=== PATIENT | male | born 1965 | race African-American/Black ===

== ENCOUNTER 2016-08-29 12:44 | Emergency (ER) | payer MEDICARE | END 2016-08-29 14:43 | disposition home or self-care (01) | LOC: BURERS 12:44 | DX: M54.32 Sciatica, left side (principal); I83.93 Asymptomatic varicose veins of bilateral lower extremities; Z79.82 Long term (current) use of aspirin; Z79.899 Other long term (current) drug therapy; Z79.891 Long term (current) use of opiate analgesic | CPT/HCPCS: 36415; 85379; 99283 ==

== ENCOUNTER 2019-01-31 13:01 | Emergency (ER) | payer MEDICARE ==
[2019-01-31 14:05] LABS: ALT (SGPT) 29 U/L (8-55); AST (SGOT) 22 U/L (5-34); Albumin 4.3 g/dL (3.5-5.0); Alkaline Phosphatase 39 U/L (40-110); Anion Gap 15 mmol/L (10-20); BUN (Urea Nitrogen) 13 mg/dL (8.4-25.7); Bilirubin, Total 0.3 mg/dL (0.2-1.2); Calc. Creatinine Clearance 0 mL/min (70-130); Calcium 9.3 mg/dL (7.8-10.44); Carbon Dioxide 27 mmol/L (22-29); Chloride 101 mmol/L (98-107); Estimated GFR-MDRD Greater than 90; Globulin 3.5 g/dL (2.4-3.5); Glucose 141 mg/dL (70-105); Potassium 3.6 mmol/L (3.5-5.1); Protein, Total 7.8 g/dL (6.0-8.3)
[2019-01-31 14:07] LABS: #Basophils 0.1 thou/uL (0.0-0.2); #Eosinphils 0.1 thou/uL (0.0-0.7); #Lymphocytes 2.3 thou/uL (1.20-3.40); #Monocytes 0.5 thou/uL (0.11-0.59); #Neutrophils 5.9 thou/uL (1.40-6.50); %Basophils 0.8 % (0.0-1.0); %Eosinophils 1.5 % (0.0-10.0); %Lymphocytes 26.1 % (21.0-51.0); %Monocytes 5.6 % (0.0-10.0); Hemoglobin 15.8 g/dL (14.0-18.0); Mean Corpuscular Hemoglobin 27.8 pg (27.0-31.0); Mean Corpuscular Volume 86.9 fL (78.0-98.0); Mean Platelet Volume 8.4 fL (7.4-10.4); Platelet Count 200 thou/uL (130-400); RBC Distribution Width 12.7 % (11.5-14.5); White Blood Cell (WBC) Count 8.9 thou/uL (4.8-10.8)
[2019-01-31 14:08] LABS: Band 1 % (5-11); Lymphocytes 27 % (21-51); MDiff Complete? YES; Monocytes 4 % (0-10); Neutrophil 68 % (42-75); Sodium 139 mmol/L (136-145)
--- NOTE | 2019-01-31 16:10 | RAD ---
RADIOGRAPH CHEST 1 VIEW: DATE: 01/31/2019 HISTORY: 54-year-old male with dyspnea FINDINGS: There are no airspace densities, pulmonary edema, pneumothorax, or cardiomegaly. The lateral costophr enic angles are sharp. IMPRESSION: No acute cardiopulmonary findings.
== END 2019-01-31 14:29 | disposition home or self-care (01) ==
LOC: BURERS 13:01
DX: I10 Essential (primary) hypertension (principal); Z79.891 Long term (current) use of opiate analgesic; Z79.899 Other long term (current) drug therapy
CPT/HCPCS: 71045; 80053; 83880; 84484; 85025; 93005; 94760

== ENCOUNTER 2019-08-31 07:45 | Emergency (ER) | payer MEDICARE ==
[2019-08-31] MEDS ORDERED: Morphine 4 MG/ML VIAL ONE (07:53)
[2019-08-31] MEDS ORDERED: Nitroglycerin 50 MG/250 ML BOT 250 ML ONE (08:05)
[2019-08-31] MEDS ORDERED: Heparin 5,000 UNITS/ML VIAL ONE (08:10)
[2019-08-31] MEDS ORDERED: Heparin 25,000 units/D5W 500 ML ONE (08:10)
[2019-08-31 08:15] LABS: INR-International Normal Ratio 1.1; PTT 26.6 sec (22.9-36.1); Prothrombin Time 13.7 sec (12.0-14.7)
[2019-08-31] MEDS ORDERED: Metoprolol Tartrate 5 MG/5 ML VIAL ONE (08:16)
[2019-08-31 08:20] LABS: Mean Corpuscular HGB CONC 30.6 g/dL (32.0-36.0); Mean Corpuscular Hemoglobin 26.8 pg (27.0-31.0); Mean Corpuscular Volume 87.8 fL (78.0-98.0); Mean Platelet Volume 7.8 fL (7.4-10.4); Platelet Count 223 thou/uL (130-400); RBC Distribution Width 12.7 % (11.5-14.5); White Blood Cell (WBC) Count 13.9 thou/uL (4.8-10.8)
[2019-08-31 08:25] LABS: ALT (SGPT) 25 U/L (8-55); AST (SGOT) 20 U/L (5-34); Albumin 4.1 g/dL (3.5-5.0); Alkaline Phosphatase 49 U/L (40-110); Anion Gap 16 mmol/L (10-20); BUN (Urea Nitrogen) 10 mg/dL (8.4-25.7); Bilirubin, Total 0.7 mg/dL (0.2-1.2); Calc. Creatinine Clearance 0 mL/min (70-130); Calcium 8.8 mg/dL (7.8-10.44); Carbon Dioxide 25 mmol/L (22-29); Chloride 99 mmol/L (98-107); Estimated GFR-MDRD Greater than 90; Globulin 3.5 g/dL (2.4-3.5); Glucose 191 mg/dL (70-105); Potassium 3.8 mmol/L (3.5-5.1); Protein, Total 7.6 g/dL (6.0-8.3); Sodium 136 mmol/L (136-145)
[2019-08-31 08:31] LABS: Band 1 % (5-11); Lymphocytes 7 % (21-51); MDiff Complete? YES; Monocytes 2 % (0-10); Neutrophil 90 % (42-75); Platelet Morphology Comment Appears Adequate; RBC Morphology Normal
[2019-08-31] MEDS ORDERED: Ketorolac Tromethamine 30 MG/ML VIAL ONE (09:37)
--- NOTE | 2019-08-31 14:21 | RAD ---
PORTABLE CHEST: Date: 08/31/2019 An AP portable film at 0814 hours is compared with the 01/31/2019 study. FINDINGS: The heart is normal in size and the lungs are clear. No lobar infiltrate or effusion evident. No vasc ular congestion or edema. IMPRESSION: No adverse change since the prior study. POS: HOME
== END 2019-08-31 08:23 | disposition short-term general hospital (02) ==
LOC: BURERS 07:45
DX: I21.3 ST elevation (STEMI) myocardial infarction of unspecified site (principal); I10 Essential (primary) hypertension; Z87.891 Personal history of nicotine dependence; Z79.899 Other long term (current) drug therapy
CPT/HCPCS: 71045; 80053; 83880; 84484; 85025; 85610; 85730; 93005; 94760; 96365; 96374; 96375; J1644; J1885; J2270

== ENCOUNTER 2019-09-09 21:24 | Emergency (ER) | payer MEDICARE ==
[2019-09-09] MEDS ORDERED: Aspirin Chewable 81 MG TAB ONE (21:38)
[2019-09-09 21:53] LABS: #Basophils 0.1 thou/uL (0.0-0.2); #Lymphocytes 1.8 thou/uL (1.20-3.40); #Monocytes 0.9 thou/uL (0.11-0.59); #Neutrophils 12.3 thou/uL (1.40-6.50); %Basophils 0.4 % (0.0-1.0); %Eosinophils 0.1 % (0.0-10.0); %Monocytes 5.8 % (0.0-10.0); %Neutrophils 81.7 % (42.0-75.0); Hemoglobin 12.4 g/dL (14.0-18.0); Mean Corpuscular HGB CONC 30.4 g/dL (32.0-36.0); Mean Corpuscular Hemoglobin 26.7 pg (27.0-31.0); Mean Corpuscular Volume 87.8 fL (78.0-98.0); Mean Platelet Volume 7.2 fL (7.4-10.4); Platelet Count 322 thou/uL (130-400); RBC Distribution Width 12.1 % (11.5-14.5); Red Blood Cell (RBC) Count 4.66 mill/uL (4.70-6.10)
[2019-09-09 22:02] LABS: ALT (SGPT) 66 U/L (8-55); AST (SGOT) 45 U/L (5-34); Albumin 3.8 g/dL (3.5-5.0); Alkaline Phosphatase 115 U/L (40-110); Anion Gap 18 mmol/L (10-20); BUN (Urea Nitrogen) 19 mg/dL (8.4-25.7); Bilirubin, Total 0.8 mg/dL (0.2-1.2); Calc. Creatinine Clearance 0 mL/min (70-130); Calcium 8.6 mg/dL (7.8-10.44); Carbon Dioxide 22 mmol/L (22-29); Chloride 92 mmol/L (98-107); Estimated GFR-MDRD 56; Globulin 3.7 g/dL (2.4-3.5); Glucose 226 mg/dL (70-105); Potassium 3.3 mmol/L (3.5-5.1); Protein, Total 7.5 g/dL (6.0-8.3); Sodium 129 mmol/L (136-145)
[2019-09-09] MEDS ORDERED: Diltiazem 125 MG/25 ML ONE (22:53)
[2019-09-09] MEDS ORDERED: Enoxaparin Sodium 100 MG/ML SYRINGE ONE (23:15)
[2019-09-09] MEDS ORDERED: Enoxaparin Sodium 30 MG/0.3 ML SYRINGE ONE (23:15)
--- NOTE | 2019-09-10 07:05 | RAD ---
PORTABLE CHEST: Date; 09/09/2019 An AP portable film at 2148 hours is compared with the 08/31/2019 study. The heart is mildly enlarged. There is no pulmonary edema or pleural effusion. The vessels do not see m abnormally congested. IMPRESSION: Mild cardiomegaly. The heart size seems slightly larger than the prior exam. POS: HOME
== END 2019-09-09 23:35 | disposition short-term general hospital (02) ==
LOC: BURERS 21:24
DX: I48.91 Unspecified atrial fibrillation (principal); R07.9 Chest pain, unspecified; I10 Essential (primary) hypertension; M06.9 Rheumatoid arthritis, unspecified; Z79.899 Other long term (current) drug therapy
CPT/HCPCS: 71045; 80053; 84443; 84484; 85025; 93005; 96361; 96365; 96372; 96376; J1650

== ENCOUNTER 2020-05-05 17:48 | Emergency (ER) | payer MEDICARE | END 2020-05-05 18:27 | disposition home or self-care (01) | LOC: BURERS 17:48 | DX: M70.41 Prepatellar bursitis, right knee (principal); I10 Essential (primary) hypertension; Z79.899 Other long term (current) drug therapy | CPT/HCPCS: 99283 ==

== ENCOUNTER 2020-06-27 10:19 | Emergency (ER) | payer MEDICARE | END 2020-06-27 11:36 | disposition home or self-care (01) | LOC: BURERS 10:19 | DX: M54.42 Lumbago with sciatica, left side (principal); I10 Essential (primary) hypertension; M06.9 Rheumatoid arthritis, unspecified; I48.91 Unspecified atrial fibrillation; Z79.899 Other long term (current) drug therapy | CPT/HCPCS: 99283 ==